=== PATIENT | female | born 1995 | race Caucasian/White ===

== ENCOUNTER 2023-04-05 07:49 | Outpatient (CLI) | payer OTHER ==
[2023-04-05] MEDS ORDERED: Iopamidol 300 61% 100 ML VIAL FS ONE (09:00)
== END 2023-04-05 07:50 | disposition home or self-care (01) ==
LOC: CSHCT 07:49
PROVIDERS: ATTEND Nurse Practitioner Family
DX: R19.00 Intra-abdominal and pelvic swelling, mass and lump, unspecified site (principal)
CPT/HCPCS: 74178; Q9967

== ENCOUNTER 2023-07-29 08:18 | Outpatient (CLI) | payer OTHER ==
[2023-07-29] MEDS ORDERED: Iopamidol 300 61% 100 ML VIAL FS ONE (14:19)
== END 2023-07-29 08:19 | disposition home or self-care (01) ==
LOC: CSHCT 08:18
PROVIDERS: ATTEND Nurse Practitioner Family
DX: C56.1 Malignant neoplasm of right ovary (principal); Z98.890 Other specified postprocedural states; Z97.5 Presence of (intrauterine) contraceptive device
CPT/HCPCS: 71260; 74177; Q9967